=== PATIENT | male | born 1970 | race Two or more races ===

== ENCOUNTER 2020-10-11 18:55 | Emergency (ER) | payer OTHER ==
--- NOTE | 2020-10-11 19:29 | EDM.PDOC ---
ED HPI GENERAL MEDICAL PROBLEM - General Chief Complaint: Laceration Stated Complaint: HURT FINGER Time Seen by Provider: 10/11/20 19:26 Source of Information: Reports: Patient History Limitations: Reports: No Limitations - History of Present Illness INITIAL COMMENTS - FREE TEXT/NARRATIVE: Work related laceration,fell,at work.Lac to the right ring finger Past Medical History - Past Health History Medical/Surgical History: Denies Medical/Surgical History Social & Family History - Family History Family Medical History: No Pertinent Family History - Tobacco Use Tobacco Use Status *Q: Current Every Day Tobacco User Years of Tobacco use: 20 Packs/Tins Daily: 1 - Caffeine Use Caffeine Use: Reports: Coffee, Soda - Recreational Drug Use Recreational Drug Use: No ED ROS GENERAL - Review of Systems Review Of Systems: Comprehensive ROS is negative, except as noted in HPI. ED EXAM, SKIN/RASH Exam: See Below Text/Narrative:: 5 cm laceration the medial aspect of right ring finger Exam Limited By: No Limitations General Appearance: Alert, WD/WN ED SKIN PROCEDURES - Laceration/Wound Repair Right Medial Digit - 4th (Ring) Appearance: Subcutaneous, Mildly Contaminated Distal NVT: Neuro & Vascular Intact Anesthetic Type: Local Local Anesthesia - Lidocaine (Xylocaine): 2% Plain Skin Prep: Chlorhexidine (Hibiciens), Saline Exploration/Debridement/Repair: No Foreign Material Found Closed with: Sutures Lac/Wound length In cm: 5 Suture Size: 3-0 Suture Type: Prolene Course - Vital Signs Last Recorded V/S: Last Vital Signs Temp 97.4 F 10/11/20 18:55 Pulse 108 H 10/11/20 18:55 Resp 20 10/11/20 18:55 BP 160/90 H 10/11/20 18:55 Pulse Ox 97 10/11/20 18:55 Departure - Departure Time of Disposition: 19:28 Disposition: Home, Self-Care 01 Clinical Impression: Laceration - Discharge Information Sepsis Event Note (ED) - Evaluation Sepsis Screening Result: No Definite Risk - Focused Exam Vital Signs: Vital Signs Temp Pulse Resp BP Pulse Ox 10/11/20 18:55 97.4 F 108 H 20 160/90 H 97 - Problem List & Annotations (1) Laceration SNOMED Code(s): 852631132 Code(s): [id number] - Status: Acute - Problem List Review Problem List Initiated/Reviewed/Updated: Yes - Assessment/Plan Plan: He is uptodate on immunizations. Remove stitches in 1 week.may return to work
== END 2020-10-11 19:57 | disposition home or self-care (01) ==
LOC: FB.ED 18:55
DX: S61.214A Laceration without foreign body of right ring finger without damage to nail, initial encounter (principal); Z72.0 Tobacco use; W26.8XXA Contact with other sharp object(s), not elsewhere classified, initial encounter; Y99.0 Civilian activity done for income or pay
CPT/HCPCS: 12002; 99282-25